=== PATIENT | male | born 1975 | race Caucasian/White ===

== ENCOUNTER 2017-07-24 06:44 | Emergency (ER) | payer OTHER ==
[2017-07-24 07:05] VITALS: TEMP 98; BMI 37.6
[2017-07-24] MEDS ORDERED: SODIUM CHLORIDE 1,000 ML IV STA (07:31)
[2017-07-24] MEDS ORDERED: ONDANSETRON 4 MG/2 ML VIAL IVPUSH ONE (07:31)
[2017-07-24] MEDS ORDERED: FAMOTIDINE 20 MG/50 ML IVPB 20 MG/50 ML MG IVPB ONE ×2 (07:31→08:20)
[2017-07-24] MEDS ORDERED: MAG HYDROX/AL HYDROX/SIMETH 30 ML UNIT-DOSE CUP PO ONE (07:32)
--- NOTE | 2017-07-24 07:51 | PDOC ---
History of Present Illness - General Chief Complaint: Pain, Acute Stated Complaint: STOMACH PAIN Time Seen by Provider: 07/24/17 07:25 History Source: Patient Exam Limitations: No Limitations - History of Present Illness Initial Comments: 07/24/17 07:46 Patient is a 42M with no significant medical history here today complaining of epigastric abdominal pain for 24 hours. He describes the pain as a stabbing burning pain with associated nausea. Denies pain with urination. Last bowel movement two hours ago. Denies diarrhea, constipation, fevers. Endorses subjective chills. He states that his pain is worse at night and when getting up. Endorses associated cough. Past History - Past Medical History Allergies/Adverse Reactions: Allergies Allergy/AdvReac Type Severity Reaction Status Date / Time No Known Allergies Allergy Verified 07/24/17 06:59 Home Medications: Ambulatory Orders Famotidine [Pepcid] 20 mg PO DAILY #30 tablet 02/03/16 Ondansetron HCl [Zofran] 8 mg PO BID PRN #6 tablet 07/24/17 - Suicide/Smoking/Psychosocial Hx Smoking History: Never smoked Have you smoked in the past 12 months: No Information on smoking cessation initiated: No Hx Alcohol Use: No Drug/Substance Use Hx: No Review of Systems - Review of Systems Comments:: 07/24/17 07:48 GENERAL/CONSTITUTIONAL: No fever. No weakness. HEAD, EYES, EARS, NOSE AND THROAT: No change in vision. No sore throat. CARDIOVASCULAR: No chest pain or shortness of breath RESPIRATORY: No cough, wheezing, or hemoptysis. GASTROINTESTINAL: Positive for nausea. Negative for vomiting, diarrhea or constipation. GENITOURINARY: No dysuria, frequency, or change in urination. MUSCULOSKELETAL: No joint or muscle swelling or pain. No neck or back pain. SKIN: No rash NEUROLOGIC: No headache, vertigo, loss of consciousness, or change in strength/ sensation. HEMATOLOGIC/LYMPHATIC: No anemia, easy bleeding, or history of blood clots. ALLERGIC/IMMUNOLOGIC: No hives or skin allergy. *Physical Exam - Vital Signs Last Vital Signs Temp Pulse Resp BP Pulse Ox 98.0 F 80 20 147/97 99 07/24/17 06:59 07/24/17 06:59 07/24/17 06:59 07/24/17 06:59 07/24/17 06:59 - Physical Exam Comments: 07/24/17 07:51 GENERAL: Awake, alert, and fully oriented, in no acute distress HEAD: No signs of trauma, normocephalic, atraumatic EYES: PERRLA, EOMI, sclera anicteric, conjunctiva clear ENT: Auricles normal inspection, hearing grossly normal, nares patent, oropharynx clear without exudates. Moist mucosa NECK: Normal ROM, supple, no lymphadenopathy, JVD, or masses LUNGS: No distress, speaks full sentences, clear to auscultation bilaterally HEART: Regular rate and rhythm, normal S1 and S2, no murmurs, rubs or gallops, peripheral pulses normal and equal bilaterally. ABDOMEN: Soft, mild tenderness in epigastrium, no cva tenderness. No guarding, no rebound. No masses EXTREMITIES: Normal inspection, Normal range of motion, no edema. No clubbing or cyanosis. NEUROLOGICAL: Cranial nerves II through XII grossly intact. Normal speech, no focal sensorimotor deficits SKIN: Warm, Dry, normal turgor, no rashes or lesions noted. ED Treatment Course - LABORATORY CBC & Chemistry Diagram: 07/24/17 08:50 07/24/17 08:50 Medical Decision Making - Medical Decision Making 07/24/17 07:52 Patient is a 42M with no significant medical history here today with epigastric abdominal pain. Vital signs stable and normal. Differential diagnosis includes, but is not limited to: gastritis, pancreatitis, GERD. Will evaluate with abdominal labs. Will treat with fluids, zofran, pepcid, maalox. Do not believe imaging is necessary at this time. No lower abdominal tenderness, no RUQ tenderness. 07/24/17 09:45 Laboratory Tests 07/24/17 07/24/17 08:50 08:50 WBC 11.6 H D Hgb 15.0 Hct 45.5 Plt Count 238 D Anion Gap 7 L BUN 16 D Creatinine 0.9 Random Glucose 109 H D Lipase 120 CBC shows small leukocytosis, not significant, otherwise normal. CMP reassuring. Lipase normal. Patient reports feeling better. UA pending. 07/24/17 09:48 Tolerating PO. 07/24/17 10:10 UA negative. Discharged home. *DC/Admit/Observation/Transfer Diagnosis at time of Disposition: Gastritis - Discharge Dispostion Disposition: HOME Condition at time of disposition: Good Admit: No - Prescriptions Prescriptions: Ondansetron HCl [Zofran] 8 mg PO BID PRN #6 tablet PRN Reason: Nausea And/Or Vomiting - Referrals Referrals: Marcus Moseley MD [Staff Physician] - Simeon Munoz MD [Staff Physician] - - Patient Instructions Printed Discharge Instructions: DI for Gastritis Additional Instructions: You were seen in the ED today for gastritis. Please take omeprazole once a day for two weeks. You can find this medication over the counter at any pharmacy without a prescription. Please take famotidine twice a day for the next week. You can find this medication over the counter at any pharmacy without a prescription. You were prescribed a medication for nausea. Please take it as needed, up to two per day. You were given 6 pills to take over the next three days. If you need more, please see your primary care physician or come back to the ED. Management of your condition is best done with the help of a primary care physician. A referral for a primary care physician is in your paper work. A referral to a GI specialist has been included as well. Please return if you have any new, worsening or concerning symptoms. - Post Discharge Activity
[2017-07-24] MEDS ORDERED: MAG HYDROX/AL HYDROX/SIMETH 30 ML UNIT-DOSE CUP ONE (08:19)
[2017-07-24] MEDS ORDERED: ONDANSETRON 4 MG/2 ML VIAL ONE (08:19)
[2017-07-24 09:02] LABS: BASO % 0.3 % (0-2.0); EOS % 0.5 % (0-4.5); HEMATOCRIT 45.5 % (35.4-49); LYMPH % 14.8 % (8-40); MCH 27.3 pg (25.7-33.7); MCHC 32.9 g/dl (32.0-35.9); MEAN CELL VOLUME 82.9 fl (80-96); MEAN PLT VOLUME 8.7 fl (7.5-11.1); MONO % 4.7 % (3.8-10.2); NEUT % 79.7 % (42.8-82.8); PLATELET COUNT 238 K/MM3 (134-434); RBC 5.48 M/mm3 (4.00-5.60); RDW 13.8 % (11.9-15.9); WHITE BLOOD COUNT 11.6 K/mm3 (4.0-10.0)
--- NOTE | 2017-07-24 09:20 | PDOC ---
Attending Attestation - Resident Resident Name: [email or web address] - ED Attending Attestation I have performed the following: I have examined & evaluated the patient, The case was reviewed & discussed with the resident, I agree w/resident's findings & plan, Exceptions are as noted - HPI HPI: 07/24/17 09:18 The patient is a 42 year old male with no past significant medical history who presents to the emergency department complaining of epigastric pain for a few hours. The patient describes the pain as a stabbing and burning. The patient reports associated symptoms of nausea without vomiting. Denies diarrhea/ constipation. Denies CP/SOB. Denies radiation of pain to back. States that he has had similar pain in the past that resolved with maalox and pepcid. - Physicial Exam PE: 07/24/17 09:19 "GENERAL: Awake, alert, and fully oriented, in no acute distress HEAD: No signs of trauma EYES: PERRLA, EOMI, sclera anicteric, conjunctiva clear ENT: Auricles normal inspection, hearing grossly normal, nares patent, oropharynx clear without exudates. Moist mucosa NECK: Nontender, no stepoffs, Normal ROM, supple, no lymphadenopathy, JVD, or masses LUNGS: Breath sounds equal, clear to auscultation bilaterally. No wheezes, and no crackles HEART: Regular rate and rhythm, normal S1 and S2, no murmurs, rubs or gallops ABDOMEN: +epigastric TTP, normoactive bowel sounds. No guarding, no rebound. No masses EXTREMITIES: Normal range of motion, no edema. No clubbing or cyanosis. No cords, erythema, or tenderness NEUROLOGICAL: Cranial nerves II through XII intact. 5/5 strength and sensation in all extremities, Normal speech, normal gait, normal cerebellar function SKIN: Warm, Dry, normal turgor, no rashes or lesions noted. " - Medical Decision Making 07/24/17 09:19 42 M with epigastric pain. Likely gastritis vs PUD. Pt with negative park's on exam. No lower quadrant tenderness. - Labs, lipase - GI cocktail 07/24/17 10:08 Labs wnl Pt reassessed - feels significantly better with GI cocktail. Tolerating PO Will DC with PMD and GI f/u. Pt is well appearing, with normal vitals. Clinically stable for DC at this time. I discussed the physical exam findings, ancillary test results and final diagnoses with the patient. I answered all of the patient's questions. The patient was satisfied with the care received and felt comfortable with the discharge plan and treatment plan. The patient agrees to follow up with the primary care physician within 24-72 hours.
[2017-07-24 09:22] LABS: ALBUMIN 4.4 g/dl (3.4-5.0); ANION GAP 7 (8-16); BLOOD UREA NITROGEN 16 mg/dL (7-18); CALCIUM 9.5 mg/dL (8.5-10.1); CHLORIDE 99 mmol/L (98-107); CO2 28 mmol/L (21-32); CREATININE 0.9 mg/dL (0.7-1.3); GLUCOSE,RANDOM 109 mg/dL (74-106); LIPASE 120 U/L (73-393); POTASSIUM 4.5 mmol/L (3.5-5.1); SGOT/AST 32 U/L (15-37); SGPT/ALT 61 U/L (12-78); SODIUM 134 mmol/L (136-145); TOT PROT 8.9 g/dl (6.4-8.2)
[2017-07-24 09:23] LABS: ALK PHOS 107 U/L (45-117)
[2017-07-24 09:43] LABS: URINE APPEARANCE CLEAR; URINE BILIRUBIN NEGATIVE (<2.0 mg/dL); URINE BLOOD NEGATIVE (NEGATIVE); URINE COLOR YELLOW; URINE GLUCOSE (UA) NEGATIVE (NEGATIVE); URINE KETONE NEGATIVE (NEGATIVE); URINE LEUK ESTERASE NEGATIVE (NEGATIVE); URINE NITRITE NEGATIVE (NEGATIVE); URINE PROTEIN NEGATIVE (NEGATIVE); URINE UROBILINOGEN NEGATIVE mg/dL (0.2-1.0)
[2017-07-24 10:28] VITALS: BP 163/107; PULSE 78
== END 2017-07-24 10:28 | disposition home or self-care (01) ==
LOC: JER 06:44
DX: K29.70 Gastritis, unspecified, without bleeding (principal)
CPT/HCPCS: 36415; 80053; 81003; 83690; 85025; 99282-25; J7030